=== PATIENT | male | born 1965 | race African-American/Black ===

== ENCOUNTER 2016-08-26 05:39 | Emergency (ER) | payer MEDICAID, OTHER ==
[~2016-08-26] VITALS: Ht 185.4 cm; Wt 128.2 kg
[2016-08-26] MEDS ORDERED: KETOROLAC 60MG/2ML VIAL IM ONE (06:30)
[2016-08-26] MEDS ORDERED: PREDNISONE 20MG TABLET PO ONE (06:30)
[2016-08-26] MEDS ORDERED: CYCLOBENZAPRINE 10MG TABLET PO ONE (06:30)
[2016-08-26 06:37] VITALS: BP 142/99
== END 2016-08-26 08:11 | disposition home or self-care (01) ==
LOC: ER 06:12
DX: S39.012A Strain of muscle, fascia and tendon of lower back, initial encounter (principal); X50.0XXA Overexertion from strenuous movement or load, initial encounter; Y93.89 Activity, other specified; Y99.9 Unspecified external cause status; Y92.89 Other specified places as the place of occurrence of the external cause
CPT/HCPCS: 72100; 96372; 99284; J1885; J7512

== ENCOUNTER 2017-05-05 17:08 | Emergency (ER) | payer MEDICAID ==
[~2017-05-05] VITALS: Ht 185.4 cm; Wt 116.0 kg
[2017-05-05] MEDS ORDERED: SODIUM CHLORIDE 0.9% 1,000 ML IV ONE (18:45)
[2017-05-05] MEDS ORDERED: LORAZEPAM 2MG/ML CPJ IV ONE (18:45)
[2017-05-05] MEDS ORDERED: CYANOCOBALAMIN 1000MCG/ML VIAL IM ONE (18:45)
[2017-05-05 19:35] LABS: BASOPHILS % 0.4 % (0.0-2.0); EOSINOPHILS % 1.2 % (0.0-5.0); HEMATOCRIT. 43.8 % (42.0-52.0); HEMOGLOBIN. 14.7 g/dL (14.0-18.0); MEAN CORPUSCULAR HEMOGLOBIN 31.1 pg (28.0-32.0); MEAN CORPUSCULAR VOLUME 92.4 fL (80.0-94.0); MEAN PLATELET VOLUME 8.3 fl (7.4-10.4); MONOCYTES % 9.2 % (2.0-8.0); NEUTROPHILS % 66.2 % (40.0-76.0); PLATELET 222 x1000/uL (130-400); RED BLOOD CELL COUNT 4.74 mill/uL (4.7-6.1); RED CELL DISTRIBUTION WIDTH 14.3 % (11.6-14.6)
[2017-05-05 19:42] LABS: CHLORIDE 100 mEq/L (98-107)
[2017-05-05 19:43] LABS: PROTHROMBIN TIME 10.4 sec (9.4-11.6)
[2017-05-05 19:50] LABS: CARBON DIOXIDE 29 mEq/L (21-32); ETHANOL BLOOD < 10 mg/dL
[2017-05-05 19:53] LABS: TROPONIN I < 0.02 ng/mL (0.00-0.04)
[2017-05-05 20:13] LABS: HEPATITIS B SURFACE ANTIGEN NEGATIVE
[2017-05-05 20:41] LABS: HEPATITIS B CORE AB IGM NEGATIVE
[2017-05-05 20:43] LABS: HEPATITIS A AB IGM NEGATIVE (NEGATIVE)
[2017-05-05 23:55] LABS: CLARITY URINE CLEAR (CLEAR); COLOR URINE YELLOW (YELLOW); GLUCOSE URINE NEGATIVE (NEGATIVE); KETONES URINE NEGATIVE (NEGATIVE); LEUKOCYTE ESTERASE URINE NEGATIVE (NEGATIVE); NITRITE URINE NEGATIVE (NEGATIVE); OCCULT BLOOD URINE NEGATIVE (NEGATIVE); PROTEIN URINE NEGATIVE (NEGATIVE); UROBILINOGEN URINE 0.2 E.U./dL (0.2-1.0)
[2017-05-06 00:33] LABS: *AMPHETAMINES SCREEN URINE NEGATIVE (NEGATIVE); *BARBITURATES SCREEN URINE NEGATIVE (NEGATIVE); *BENZODIAZEPINES SCREEN URINE NEGATIVE (NEGATIVE); *COCAINE SCREEN URINE PRESUMTIVE POSITIVE (NEGATIVE); CANNABINOID URINE SCREEN NEGATIVE (NEGATIVE); METHADONE URINE SCREEN NEGATIVE (NEGATIVE); OPIATES URINE SCREEN NEGATIVE (NEGATIVE); PHENCYCLIDINE URINE SCREEN NEGATIVE (NEGATIVE)
[2017-05-06 14:26] VITALS: BP 125/75
== END 2017-05-06 14:30 | disposition home or self-care (01) ==
LOC: ER 17:49
DX: F32.9 Major depressive disorder, single episode, unspecified (principal); F14.10 Cocaine abuse, uncomplicated; F10.20 Alcohol dependence, uncomplicated; E86.0 Dehydration; R61 Generalized hyperhidrosis; F17.200 Nicotine dependence, unspecified, uncomplicated; Z59.0 Homelessness; Z86.73 Personal history of transient ischemic attack (TIA), and cerebral infarction without residual deficits; Z98.890 Other specified postprocedural states
CPT/HCPCS: 36415; 71010; 80053; 80305; 81003; 83036; 83880; 84484; 85025; 85610; 93005; 96361; 96372; 96374; 99285; G0482; J2060; J3420; J7030; Z7610; 86705; 86709; 86803; 87340

== ENCOUNTER 2017-05-30 16:14 | Emergency (ER) | payer MEDICAID ==
[~2017-05-30] VITALS: Ht 182.9 cm; Wt 127.0 kg
[2017-05-30 16:34] VITALS: BP 126/76
== END 2017-05-30 17:13 | disposition left against medical advice (07) ==
LOC: ER 16:22
DX: Z53.21 Procedure and treatment not carried out due to patient leaving prior to being seen by health care provider (principal)

== ENCOUNTER 2019-04-15 23:03 | Emergency (ER) | payer MEDICAID ==
[~2019-04-15] VITALS: Ht 172.7 cm; Wt 106.0 kg
[2019-04-15] MEDS ORDERED: SODIUM CHLORIDE 0.9% 1,000 ML IV ONE (23:57)
[2019-04-16] MEDS ORDERED: FAMOTIDINE 20MG/2ML VIAL IV ONE
[2019-04-16 00:19] LABS: HEMOGLOBIN. 14.9 g/dL (14.0-18.0)
[2019-04-16 00:26] LABS: CHLORIDE 103 mEq/L (98-107)
[2019-04-16 00:29] LABS: BASOPHILS % 0.5 % (0.0-2.0); HEMATOCRIT. 44.2 % (42.0-52.0); LYMPHOCYTES % 24.7 % (20.0-50.0); MEAN CORPUSCULAR HEMOGLOBIN 31.2 pg (28.0-32.0); MEAN CORPUSCULAR VOLUME 92.8 fL (80.0-94.0); MONOCYTES % 8.1 % (2.0-8.0); NEUTROPHILS % 65.7 % (40.0-76.0); PLATELET 249 x1000/uL (130-400); RED BLOOD CELL COUNT 4.76 mill/uL (4.7-6.1); RED CELL DISTRIBUTION WIDTH 14.4 % (11.6-14.6)
[2019-04-16 00:31] LABS: ETHANOL BLOOD 179 mg/dL
[2019-04-16 05:12] VITALS: BP 100/57
== END 2019-04-16 06:16 | disposition home or self-care (01) ==
LOC: ER 23:03
DX: K29.20 Alcoholic gastritis without bleeding (principal); F10.129 Alcohol abuse with intoxication, unspecified; D17.0 Benign lipomatous neoplasm of skin and subcutaneous tissue of head, face and neck; F17.200 Nicotine dependence, unspecified, uncomplicated; Z98.890 Other specified postprocedural states; Z86.73 Personal history of transient ischemic attack (TIA), and cerebral infarction without residual deficits; Y90.6 Blood alcohol level of 120-199 mg/100 ml
CPT/HCPCS: 36415; 71045; 76705; 80053; 80320; 83690; 83880; 84484; 85025; 93005; 96374; 99284; J3490; J7030; G0480